=== PATIENT | female | born 1985 | race Caucasian/White ===

== ENCOUNTER 2024-05-26 14:50 | Outpatient (AMB) | payer BC, SELFPAY ==
--- NOTE | 2024-05-26 14:58 | MHC.OFFVIS ---
Vital Signs 05/26/24 15:00 Height 5 ft 10 in Weight 179 lb 0.246 oz BMI 25.7 BP 109/74 Blood Pressure Location Lt brachial Position Sitting Pulse 74 Intake Visit Reasons: colonoscopy screening Intake Note: New patient in office today for colonoscopy screening. CC: Patient states that her sister was diagnosed with colorectal cancer when she was 33 y/o. Patient's last colonoscopy in [address] [place] She reports hx of constipation alternating with diarrhea, SIBO back in 2019, and having abdominal bloating, abdominal pain, and acid reflux. Hotel Service Manager Required: No Accompanied by: Self / Same As Patient Allergies No Known Drug Allergies Allergy (Unknown, Verified 05/26/24 15:14) none HPI HPI colonoscopy screening: Details: 38-year-old female here for preprocedural meeting to discuss a screening colonoscopy. She is referred by [facility]. PMX Migraines Anxiety/depression Sister of colon cancer at age 36 * SURGICAL HISTORY Shoulder surgery [place] tooth extraction Colonoscopy-? in [place] * ALLERGIES: NKDA * Oxagen LABS: none in our system TODAY'S VISIT She had a prior scope 6 years ago. She thinks she had polyps, AND her sister was dx'ed with rectal cancer at age 33. She denies any cardiac or respiratory problems. There are no prior problems with anesthesia or sedation. No ID problems. She says she suffers chronic CIC. BUt then she says she goes back and forth with IBS-M historically, although she has CIC as t he dominant problem recently. It has worsened over the past 2 mos. She had one episode of abd pain with severe CIC and then N/V - but it resolved with a BM. She exercises, eats well, takes a probiotic, drinks a lot of water. There is a FHX of CIC in mother with tics and a resection. She does not favor taking medications so we discussed doing something mild such as taking milk of magnesia. She then mentioned that she is on magnesium already for her migraine headaches so I think that this would be a perfect starting point for her to see if she can increase her intake of magnesium to manage her stools. She buys magnesium glycinate [id number] and she will start doing this. At this point she feels she will do this by herself and call me if she needs additional help. [facility] Surgical History H/O colonoscopy H/O shoulder surgery H/O wisdom tooth extraction Family History Sister Malignant tumor of colon Colorectal cancer Father Heart disease History of cardiac ablation for atrial fibrillation Prediabetes HTN (hypertension) Colon polyps Mother Prediabetes HTN (hypertension) Colon polyps Social History Alcohol intake: never Patient Tobacco Use Status: Never used Tobacco Use of substances other than those prescribed or required for medical reasons: No Review of Systems Const Denies fatigue, Denies fever(s), Denies night sweats, Denies poor appetite and Denies weight loss ENT Reports Normal hearing present, Denies dysphagia, Denies odynophagia, Denies throat swelling and Denies tongue swelling Card Reports no additional complaints Resp Reports no additional complaints GI Details: Denies abdominal pain, Denies melena, Denies bloating, Denies hematochezia, Reports constipation, Denies GI cramping, Denies dysphagia, Denies excessive flatus, Denies early satiety, Denies heartburn, Denies diarrhea, Denies nausea, Denies odynophagia, Denies vomiting and Denies hematemesis Skin/Breast Denies pruritus, Denies lesions, Denies rash and Denies jaundice Neuro Reports Normal hearing present and Denies Abnormal speech present Endo Denies fatigue Aller/Immun Denies throat swelling and Denies tongue swelling Physical Exam Vital Signs: Last Vital Signs Pulse 74 05/26/24 15:00 BP 109/74 05/26/24 15:00 BMI result Body Mass Index 25.7 Const General: cooperative, no acute distress, well developed and well groomed Nutritional Appearance: average body habitus and well nourished Orientation/consciousness: oriented to person, oriented to place and oriented to time Limitations: No language barrier HEENT Head: Yes normocephalic and Yes atraumatic Eyes General: appearance normal, both eyes and all related structures Pupils: Equal, round and reactive pupils present Neck Neck: Yes normal visual inspection and Yes no lymphadenopathy Thyroid: Thyroid normal Resp Effort & Inspection: normal respiratory effort and able to speak in complete sentences Auscultation: clear to auscultation bilaterally Cardio Rate: regular rate Rhythm: regular rhythm Heart sounds: Normal, physiologic split S2 sound present Peripheral pulses: radial pulses present and posterior tibial pulses present GI Inspection: No distended and No Abdominal panniculus present Palpation (GI): Soft to palpation, nontender, no guarding, not rigid and No hepatosplenomegaly present Percussion: Yes normal to percussion Auscultation: normal bowel sounds Rectal Exam - Female: deferred Skin General skin exam: no rashes or lesions noted, turgor normal, skin not dry, no jaundice, No spider nevi and no striae Rashes: no rashes Nails: normal Neuro General: oriented to person, oriented to place and oriented to time Cranial nerves: Yes Equal, round and reactive pupils present and Yes Normal hearing present Speech: No Abnormal speech present Extrem General: Yes normal to inspection, No clubbing, No cyanosis and No edema Psych Appearance: grossly normal and well kempt Mental Status: mental status grossly normal Speech and movement: Normal speech and movement present Affect: normal affect Attitude: cooperative Thought process: Normal thought process present and not confabulating Thought content: Normal thought content present Insight: Good insight present (Psych) Judgement: Good judgement present (Psych) Assessment & Plan Assessment & Plan (1) Family history of malignant neoplasm of colon in relative diagnosed when younger than 50 years of age: Comment: SISTER AT AGE 36 Code(s): Z80.0 - Family history of malignant neoplasm of digestive organs Category: Medical (2) Chronic idiopathic constipation: Code(s): K59.04 - Chronic idiopathic constipation Category: Medical Plan She had a prior scope 6 years ago. She thinks she had polyps, AND her sister was dx'ed with rectal cancer at age 33. She denies any cardiac or respiratory problems. There are no prior problems with anesthesia or sedation. No ID problems. She says she suffers chronic CIC. BUt then she says she goes back and forth with IBS-M historically, although she has CIC as t he dominant problem recently. It has worsened over the past 2 mos. She had one episode of abd pain with severe CIC and then N/V - but it resolved with a BM. She exercises, eats well, takes a probiotic, drinks a lot of water. There is a FHX of CIC in mother with tics and a resection. She does not favor taking medications so we discussed doing something mild such as taking milk of magnesia. She then mentioned that she is on magnesium already for her migraine headaches so I think that this would be a perfect starting point for her to see if she can increase her intake of magnesium to manage her stools. She buys magnesium glycinate [id number] and she will start doing this. At this point she feels she will do this by herself and call me if she needs additional help. Orders: Orders Complete Blood Count Auto Diff Today Z80.0 - Family history of malignant neoplasm of digestive organs Comprehensive Met. Panel Today Z80.0 - Family history of malignant neoplasm of digestive organs Colonoscopy - GI Use Only Today Z80.0 - Family history of malignant neoplasm of digestive organs TSH reflex Free T4 Today K59.04 - Chronic idiopathic constipation Medications: New peg 3350-electrolytes 236-22.74-6.74 -5.86 gram (Golytely) until fecal effluent is clear; do not exceed a total volume of 2,000 mL 240 mL PO Q10M 4,000 mL 0RF 1 day Z12.11 - Encounter for screening for malignant neoplasm of colon bisacodyl (Dulcolax (bisacodyl)) 10 mg (2 x 5 mg) PO BEDTIME 4 tabs 0RF 2 days Coding Level of Care Code New Pt Level 3 (27747) Diagnoses Family history of malignant neoplasm of colon in relative diagnosed when younger than 50 years of age Z80.0 Chronic idiopathic constipation K59.04
[2024-05-26 15:00] VITALS: BP 109/74; PULSE 74; BMI 25.7
--- OUTSIDE RECORDS SUMMARY | 2024-05-26 17:27 | XMS_ITS | Clinical Summary ---
Author Organization [facility] Address [address] [place] [address] Care Team Providers Care Clean Out Driller Name Role Phone Unknown, Primary Care Provider Unavailabl e Social History Tobacco Use Types Packs/Day Years Used Date Smoking Tobacco: Never Assessed Sex and Gender Information Value Date Recorded Sex Assigned at Not on file Gender Identity Not on file Sexual Orientation Not on file Plan of Treatment Health Maintenance Due Date Last Done Comments Hepatitis B Vaccines (1 of 3 - 3-dose series) 1987 Hepatitis C Screening 1987 COVID-19 Vaccine (#1) 01/16/1988 Depression Screening 1999 Preventative Health Evaluation 07/15/2005 DTap / Tdap / Td (1 - Tdap) 07/15/2006 Cervical Cancer Screening (P ap Smear) 07/15/2008 Influenza Vaccine (#1) 2023 Pneumococcal Vaccine Aged Out No long er eligible based on patient's age to complete this topic RSV Ped < 20 months Aged Out No longe r eligible based on patient's age to complete this topic Care Teams Clean Out Driller Relationship Specialty Start Date End Date Unknown, PCP - General 02/28/20
--- OUTSIDE RECORDS SUMMARY | 2024-05-26 17:27 | XMS_ITS | Patient Health Record ---
Author Organization [facility] [place], Address [address] [place] [address] Support Name Relationship Address Phone Pat Vera Guarantor Unknown [phone] Reason For Referral No Information Plan Of Treatment No Information Insurance Providers Payer Name Payer Address Payer Phone Subscriber Number Group Number Insured Name Patient Relationship to Insured Coverage Start Date Coverage End Date [facility] [address] [place] [address] [phone] [id number] Pat Vera Self - patient is the insured
--- OUTSIDE RECORDS SUMMARY | 2024-05-26 17:27 | XMS_ITS | Clinical Summary ---
Author Organization [facility] Address [address] [place] [address] Care Team Providers Care Computer Mechanic Name Role Phone Cami Roa APRN Primary Care Provider Unavailable Medications Magnesium 500 MG Cap TAKE 1 CAPSULE Daily capsule 0 9 Active loratadine (Claritin) 10 MG tablet TAKE 1 TABLET DAILY. 0 9 Active Probiotic Product (Align) Cap USE DIRECTED. 0 2 Active () 27-0.8 MG tablet TAKE 1 TABLET DAILY DIRECTED. 0 2 Active Rizatriptan Benzoate (MAXALT) 10 MG tablet PLEASE SEE ATTACHED FOR DETAILED DIRECTIONS 0 2 Active Escitalopram Oxalate (LEXAPRO) 10 MG tablet TAKE 1 TABLET BY MOUTH DAILY TAKE ONE 10 MG TABLET AND ON 5 MG TABLET DAILY 0 3 Active Escitalopram Oxalate (LEXAPRO) 5 MG tablet TAKE 1 TABLET BY MOUTH DAILY WITH 10MG TABLETS 0 3 Active Active Problems Problem Noted Date Diagnosed Date Encounter for immunization 06/05/2022 Onychomycosis of toenail 03/23/2020 Overview (03/30/2023): Impression - [id number]: Bilateral great toes. Will send in treatment. Encounter for screening for lipid disorder 02/27 Seasonal allergies 05/19/2018 Contraception management 05/19/2018 Vitamin D deficiency 03/26/2018 Acne 06/28/2013 Irritable bowel syndrome, unspecified type 06/28 Overview (03/30/2023): Impression - [id number]: Stable she avoids foods that worsen symptoms. She primarily has the constipation related to IBS. She has a strict bowel regimen.; Description: Past history of small intestinal bacterial overgrowth Migraine headache 06/28/2013 Overview (03/30/2023): Impression - 07Mar2014: doing ok, con't prn sumatriptan Impression - 23Mar2020: About 2 years ago, started on IUD to help with symptoms. Past 4 months she is at 2 migraines per month. Currently taking excedrin. Has been off abortives for years. Has tried Zomig and other abortives like maxalt. Will try rizatriptan again and head[facility]he clinic if symptoms persist. Generalized anxiety disorder 06/28/2013 Overview (03/30/2023): Impression - 23Mar2020: Psychiatrist from [place]. Dr Leon. 2x per week via video. She reports being stable. Depression 06/28/2013 Overview (03/30/2023): Impression - 23Mar2020: Psychiatrist from [place]. Dr Leon. 2x per week via video. She reports being stable. Impression - 23Mar2020: Psychiatrist from [place]. Dr Leon. Follows up 2x per week via video. She reports being stable on current medication. Denies suicidal ideation. Immunizations Name Administration Dates Next Due Covid-19, mRNA (Pfizer Pre F all 2022) Bivalent, 30 mcg/0.3 ml artis-sucrose (12+) dose 11/20/2021 DT (pediatric) 10/09/2006,10/01/2001 DTaP 10/10/1994, 0,02/08/1988,12/03,1987 Hep B (adult) 08/20/2000,11/28/1999,10/25/1999 Hib (PRP-OMP) 02/26/1989 Influenza,injectable,quad,Pr srv Fr,Pedi 11/20/2021 Influenza,seasonal,trivalent ,preservat gisele (FLUZONE MDV) 10/25/2019 MMR 11/28/1998,07/28/1998 Meningococcal ACWY (Menactra) 06/28/2005 OPV 05/22/1989,1987,1987 Tdap 05/19/2018 Family History Medical History Relation Name Comments Cancer - Skin Father skin cancer : Father Hypertension Father hypertension : Mother, Father Other Father Obstructive sle ep apnea : Father Depression Mother depression : Mo ther, Sibling Hypertension Mother hypertension : Mother, Father Lipid/Cholesterol Abnormality Mother hypercholesterolemia : Mother Psych/Mental Health Mother anxiety disorder : Mother, Sibling Cancer - Ovarian Paternal grandmother ova yonis cancer : Paternal Grandmother Depression Sibling depression : Mo ther, Sibling Psych/Mental Health Sibling anxiety disorder : Mother, Sibling Cancer (?Type) Sister Primary cance r of rectum : Sister Relation Name Status Comments Father Mother Paternal grandmother Sibling Sister Social History Tobacco Use Types Packs/Day Years Used Date Smoking Tobacco: Never Assessed Comments:Smoking Status:No c urrent tobacco use Comments Unknown Sex and Gender Information Value Date Recorded Sex Assigned at Not on file Legal Sex Female 3:21 PM EDT Gender Identity Not on file Sexual Orientation Not on file Last Filed Vital Signs Vital Sign Reading Time Taken Comments Blood Pressure 110/80 06/05/2022 10:04 AM EDT Pulse 78 06/05/2022 10:04 AM EDT Temperature 36.1 ??C (96.9 ??F) 06/05/2022 10:04 AM E DT Respiratory Rate 16 06/05/2022 10:04 AM EDT Oxygen Saturation 99% 06/05/2022 10:04 AM EDT Inhaled Oxygen Concentration - - Weight 80.7 kg (178 lb) 05/22/2021 8:34 AM EDT Height 177.8 cm (5' 10 ) 05/22/2021 8:34 AM EDT Body Mass Index 25.54 05/22/2021 8:34 AM EDT Plan of Treatment Health Maintenance Due Date Last Done Comments Pap Smear 2003 Colonoscopy 07/29/2022 07/29/2017, 07/29/2017 COVID-19 Vaccine ( season) 2023 11/20/2021 Influenza (#1) 2023 11/20/2021, 10/25/2019 DTaP/Tdap/Td (6 - Td or Tdap) 05/19/2028 05/19/2018, 10/10/1994, 05/22/1989, Additional history exists Zoster (Shingrix) (1 of 2) 07/15/2037 Hib Completed 02/26/1989 Hep B Completed 08/20/2000, 05/1999, 10/25/1999 Meningococcal ACWY Completed 06/28/2005 Hepatitis C Screening Completed 03/17/2020 LDL Cholesterol Discontinued 03/17/2020, 06/24, 06/22/2014, Additional history exists Physical Discontinued 06/05/2022, 04/25, 03/23/2020, Additional history exists HPV Vaccine Aged Out No longer eligi ble based on patient's age to complete this topic Hep A Aged Out No longer eligi ble based on patient's age to complete this topic Pneumococcal Aged Out No longer eligi ble based on patient's age to complete this topic Procedures Procedure Name Priority Date/Time Associated Diagnosis Comments HEPATITIS C ANTIBODY W/ REFLEX TO RNA, QN, RT PCR Routine 03/17/2020 9:47 AM EST LIPID PANEL, PLASMA Routine 03/17/2020 9 :47 AM EST COLONOSCOPY Routine 07/29/2017 10:08 AM EDT from Last 3 Months or Most Recently Relevant to Health Maintenance Results * HEPATITIS C ANTIBODY W/ REFLEX TO RNA, QN, RT PCR (03/17/2020 9:47 AM EST) Hepatitis C virus Ab NON-REACT GISELE NON-REACT GISELE PHCT CONVERSIONS Hepatitis C virus Ab 0.06 <1.00 PHCT CONVERSIONS Comment:Antibodies to HCV we re not detected. NOTE: This does not entirely exclude the possibility of exposure to HCV since antibody production may lag infection. If there is a high suspicion of HCV infection HCV RNA testing may be of diagnostic value. 03/17/2020 9:47 AM EST Narrative PHCT CONVERSIONS - 03/17/2020 1:00 PM EST Testing Performed at: [facility], [address] [place] [address], [place] [address], , Scouring Pads Supervisor: Jennifer Waite MD CL#[id number] 3:03PM by Rocio Carreno: ??Stable. [facility] at [facility] Final Result PHCT CONVERSIONS * (ABNORMAL) LIPID PANEL, PLASMA (03/17/2020 9:47 AM EST) Cholesterol 187 0 - 199 mg/dL PHCT CONVERSIONS Triglyceride 51 0 - 150 mg/dL PHCT CONVERSIONS VLDL Cholesterol 10 5 - 40 mg/dL PHCT CONVERSIONS HDL Cholesterol 51 50 - 80 mg/dL PHCT CONVERSIONS LDL Cholesterol 126(H) 0 - 100 mg/dL PHCT CONVERSIONS Cholesterol Non-HDL 136(H) 0 - 130 mg/dl PHCT CONVERSIONS CHOL/HDL Ratio 3.7 PHCT CONVERSIONS 03/17/2020 9:47 AM EST Narrative PHCT CONVERSIONS - 03/17/2020 12:56 PM EST FASTING: YES Testing Performed at: [facility], [address] [place] [address], , [place] Supervisor: Jennifer Waite MD CL#[id number] 3:03PM by Rocio Carreno: ??Stable. Discuss at [facility] Final Result PHCT CONVERSIONS * COLONOSCOPY (07/29/2017 10:08 AM EDT) COLONOSCOPY, RESULT Normal PHCT CONVERSIONS DATE NEXT SCREEN VISIT 5 Years PHCT CONVERSIONS 07/29/2017 10:0 8 AM EDT us Php Unknown Prov PROCEDURES Final Result PHCT CONVERSIONS from Last 3 Months or Most Recently Relevant to Health Maintenance Care Teams Computer Mechanic Relationship Specialty Start Date End Date Cami Roa APRN PCP - General 09/30/22
--- OUTSIDE RECORDS SUMMARY | 2024-05-26 17:27 | XMS_ITS | Encounter Summary ---
Author Organization [facility] Address [address] [place] [address] Care Team Providers Care Financial Developer Name Role Phone Rocio Carreno APRN Primary Care Provider + [phone] Encounter Details Date Type Department Care Team (Late st Contact Info) Description 03/18/2024 Scanned Document [facility] [address] [address] Neurology, Scan Social History Tobacco Use Types Packs/Day Years Used Date Smoking Tobacco: Never Smokeless Tobacco: Never Alcohol Use Standard Drinks/Week Comments Yes 1 (1 standard drink = 0.6 oz pur e alcohol) PHQ-2 Answer Date Recorded PHQ-2 Total Score 1 12/29/2023 [facility] - Occupational Stress Questionnaire Answer Date Recorded Do you feel stress - tense, restless, nervous, or anxious, or unable to sleep at night because your mind is troubled all the time - these days? Very much 12/30/2023 Physical Activity Answer Date Recorded On average, how many days pe r week do you engage in moderate to strenuous exercise (like a brisk walk)? 2 days 12/30/2023 On average, how many minutes do you exercise per day at this level? 20 min 12/30/2023 Sex and Gender Information Value Date Recorded Sex Assigned at Female 10/06/2023 7:30 AM EDT Gender Identity Female 01/02/2020 9:23 AM EST Sexual Orientation Heterosexual (straight) 01/01 9:23 AM EST documented as of this encounter Plan of Treatment Upcoming Encounters Date Type Department Care Team (Late st Contact Info) Description 08/31/2024 2:00 PM EDT Office Visit [facility] - [address] [address] Kanchan Ku APRN [address] [address] documented as of this encounter Visit Diagnoses Not on filedocumented in this encounter Care Teams Financial Developer Relationship Specialty Start Date End Date Rocio Carreno APRN [address] [place] [address] PCP - General 08/30/20 documented as of this encounter
--- OUTSIDE RECORDS SUMMARY | 2024-05-26 17:27 | XMS_ITS | Data Portability ---
Author Organization [place] [facility], [facility] Address [address] [facility] [address] [place] [address] Care Team Providers Care Miner Helper Name Role Phone DOTTIE SANA Primary Care Provider Assessment No assessment recorded. Plan of Treatment Reminders Order Date Submit Date Provider Last Modified By Organization Details Last Modified Time Details Appointments None record ed. Lab urinal ysis, dipsti ck 2020 021 [email or web address] In-Office Order, Internal Use Only DO Not Attach Compendium DO Not Attach Compendium, Do Not Delete/merge, [id number] 1 14:08:16 pap, IG + HPV 2020 021 [facility], [address] [place], [address] 1 11:09:44 urinal ysis, dipsti ck 2019 020 [email or web address] In-Office Order, Internal Use Only DO Not Attach Compendium DO Not Attach Compendium, Do Not Delete/merge, [id number] 0 09:42:34 cultur e, genita l, bacter ial 2019 020 [facility], [address] [place], [address] 0 11:29:33 CT + NG DNA, PCR, unspec ified specim en 2019 020 [facility], [address] [place], [address] 0 14:14:04 urinal ysis, dipsti ck 2018 019 [email or web address] In-Office Order, Internal Use Only DO Not Attach Compendium DO Not Attach Compendium, Do Not Delete/merge, [id number] 9 10:14:27 Referral None record ed. Procedures None record ed. Surgeries None record ed. Imaging US, pelvis , comple te 2017 018 [email or web address] Not available 8 15:02:15 Medication Orders Metrog el Vagina l 0.75 % (37.5 mg/5 gram) 2019 020 [email or web address] [id number], [address], [place], [address], 1 13:38:03 Kyleen a 17.5 mcg/24 hr (up to 5 years) 19.5 mg intrau terine device 2017 018 [email or web address] [facility], [facility], [place], [address], 8 15:01:51 Patient TargetsNo targets recorded. Patient Instructions Encounter Date Encounter Id Patient Instructions Last Modified By Organization Details Last Modified Time 04/11/2020 [id number] discussed self breast exam, to call with any concerns exercise -should try to exercise for 30 min 3-4 times a week protect bone with calcium and vit D IVP screen given weight management Behavioral health screening completed and reviewed with patient. Negative findings. [email or web address] Not available 04/11/2020 12:41:03 Reason for Referral None Reported. Results Created Date Observation Date Name Description Value Unit Range Abnormal Flag Note LastModifiedBy Organization Detail LastModifiedTime 04/11/19 21 04/11/2020 urina lysis , dipst ick Interpretati on negati ve Not Available In-Office Order Internal Use Only DO Not Attach Compendium DO Not Attach Compendium, Do Not Delete/merge, [id number] 04/11/2020 12:39:36 08/26/19 20 08/26/2019 urina lysis , dipst ick Leukocytes Modera te: +2 Not Available In-Office Order Internal Use Only DO Not Attach Compendium DO Not Attach Compendium, Do Not Delete/merge, [id number] 08/26/2019 09:35:21 07/31/19 19 07/30/2018 urina lysis , dipst ick Leukocytes Small: +1 Not Available In-Office Order Internal Use Only DO Not Attach Compendium DO Not Attach Compendium, Do Not Delete/merge, [id number] 07/30/2018 09:52:41 08/26/19 20 08/30/2019 vag/c erv cultu re gram stain abnormal GRAM STAIN Micro Numbe r: [id number] Test Statu s: Final Speci men Sourc e: VAGIN A Speci men Quali ty: Adequ ate Gram Stain : Many White blood cells seen Many epith elial cells Many Gram posit elijah bacil li Not Available [facility] [address], [address], 08/30/2019 11:29:33 08/26/19 20 08/30/2019 vag/c erv cultu re culture, genital abnormal CULTU RE, GENIT AL Micro Numbe r: [id number] Test Statu s: Final Speci men Sourc e: VAGIN A Speci men Quali ty: Adequ ate Resul t: Heavy growt h of Yeast Henderson neli. Pleas e conta ct the labor atory withi n 3 days if furth er ident ifica tion is geremias ed. COMME NT: Jes l uroge nital rolanda also prese nt. Not Available [facility] [address], [address], 08/30/2019 11:29:33 08/26/19 20 08/26/2019 CT + NG DNA, PCR, unspe cifie d speci men neisseria gonorrhoeae RNA, tma Negati ve negati ve Not Available [facility] [address] [place] [address], [address] 08/30/2019 14:14:04 08/26/19 20 08/26/2019 CT + NG DNA, PCR, unspe cifie d speci men chlamydia trachomatis RNA, tma Negati ve negati ve Not Available [facility] [address] [place], [address] 08/30/2019 14:14:04 04/11/19 21 04/11/2020 HPV DNA, high- risk HPV MRNA E6/E7 Negati ve negati ve APTIM A HPV assay detec ts 14 high risk HPV types (HPV 16,18 ,31,3 3,35, 39,45 ,51,5 2,56, 58,59 ,66,6 8). The assay is FDA appro ronald for testi ng ThinP rep liqui d Pap vials but not FDA appro ronald for detec ting HPV in SureP ath liqui d Pap speci mens. In-ho use valid ation has shown the assay can detec t all HPV types from this sour e Not Available [facility] [address] [place], [address] 04/14/2020 11:09:41 04/11/1904/11/2020 pap, IG + HPV report Report Final Gynec ologi jojo Cytol ogy Repor t ----- ----- ----- ----- ----- ----- ----- ----- ----- ----- ----- ----- ThinP rep Pap Test, HPV Mai n, Refle x HPV Genot ype SPECI MEN ADEQU ACY: SATIS FACTO RY FOR EVALU ATION ; ENDOC ERVIC AL/TR ANSFO RMATI ON ZONE COMPO NENT PRESE NT. INTER PRETA TION: NEGAT ELIJAH FOR INTRA EPITH AYLIN Herrera OR GARY HATCH . Elect ralph Celeste d: Edna Bose, BINU (ASCP ) ----- ----- ----- ----- ----- ----- ----- ----- ----- ----- ----- ----- CLINI JOJO INFOR ROLANDO N: LMP: 03/24 Clini jojo Histo ry: RTN Speci men Sourc e: Cervi x, Endoc ervix Previ ous Pap Date: 07/25 HPV RESUL TS: HPV mRNA E6/E7 [id number] Appro ronald: 04/12 Negat elijah REF RANGE : Negat elijah CPT Codes : 43580 ICD Codes : Z01.4 19 Not Available [facility] [address] [place], [address] 04/14/2020 11:09:44 09/20/19 18 09/19/2017 imagi ng/di agnos tic resul t No observ ation record ed. [email or web address] Not Available 2017 13:45:58 Result Notes None recorded. Problems No Known Problems Procedures Surgical History Date Name Laterality Status Provider Name and Address Organization Details Recorded Time 2 IUD Removal completed TEX RIOS MD [address], [address] [place] [address], [facility] 03/01/2021 15:32:06 1 [id number]-EZI completed TEX RIOS MD [address], [address] [place] [address] 04/11/2020 12:39:35 1 [id number] completed TEX RIOS MD [address], [address] [place] [address] 04/11/2020 12:39:35 1 [id number] completed TEX RIOS MD [address], [address] [place] [address] 04/11/2020 12:39:35 1 Date of Last Pap Smear completed Tyra Lutz [facility] 04/14/2020 11:35:46 9 [id number] completed TEX RIOS MD [address], [address] [place] [address] 07/30/2018 10:07:09 9 [id number] completed TEX RIOS MD 175 [facility], [address] [place] [address], [address], [facility] 07/30/2018 10:07:09 9 [id number] completed TEX RIOS MD 175 [facility], [address] [place] [address], [place], [address] [place] [address], [facility] 07/30/2018 10:07:09 8 IUD Insert completed TEX RIOS MD 175 [facility], [address] [place] [address], [place], [address] [place] [address], [facility] 09/02/2017 15:01:48 8 [id number] completed TEX RIOS MD 175 [facility], [address] [place] [address], [place], [address] [place] [address], [facility] 07/25/2017 15:08:16 8 [id number] completed TEX RIOS MD 175 [facility], [address] [place] [address], [place], [address] [place] [address], [facility] 07/25/2017 15:08:16 8 [id number] completed TEX RIOS MD 175 [facility], [address] [place] [address], [place], [address] [place] [address], [facility] 07/25/2017 15:08:16 7 [id number]-[id number] completed TEX RIOS MD 175 [facility], [address] [place] [address], [place], [address] [place] [address], [facility] 06/25/2016 09:22:59 7 [id number] completed TEX RIOS MD 175 [facility], [address] [place] [address], [place], [address] [place] [address], [facility] 06/25/2016 09:22:51 7 [id number] completed TEX RIOS MD 175 [facility], [address] [place] [address], [place], [address] [place] [address], [facility] 06/25/2016 09:22:55 None Reported completed Ramza Andrew [place] - [facility] 07/30/2018 09:54:53 Imaging Results Imaging Date Name Status LastModified by Organiz ation Details LastModified Time 09/19/2017 imaging/diag nostic result completed [email or web address] Information not available 09/19/2017 13:45:58 Procedure Notes None recorded. Medical Equipment None Reported. Allergies Allergen ID Allergen Name Allergen Category Reaction Reaction Severity Criticality Documentation Date Start Date Code Code System Note Provider Name and Address Organization Details Recorded Time 050635 No known allergy (situatio n) Not available Not available Not available Not available 07/26/20142013 14013 6003 SNOMED Caren Negron-Fig drea dawson, [facility] 0 09:25:31 No known drug allergies Medications Name Sig Start Date Stop Date Status Note LastModified by Organization Details LastModified Time Vitamin B-2 100 mg tablet active Not Available Not Available Not Available isotretinoi n 40 mg capsule active Not Available Not Available Not Available azithromyci n 250 mg tablet 07/25 completed Not Available Not Available Not Available fluconazole 150 mg tablet Take 1 tablet by oral route. 04/11 completed Not Available Not Available Not Available tretinoin 0.025 % topical cream active Not Available Not Available Not Available minocycline 100 mg capsule active Not Available Not Available Not Available metronidazo le 0.75 % (37.5 mg/5 gram) vaginal gel Insert 1 applicato rful every day by vaginal route for 5 days. 04/11 completed Not Available Not Available Not Available prednisone 20 mg tablet 07/25 completed Not Available Not Available Not Available sulfacetami de sodium-sulf ur 10 %-5 % (w/w) topical cleanser active Not Available Not Available Not Available terconazole 0.8 % vaginal cream Insert 1 applicato rful every day by vaginal route at bedtime for 3 days. 04/11 completed Not Available Not Available Not Available meclizine 12.5 mg tablet 07/25 completed Not Available Not Available Not Available metronidazo le 500 mg tablet 07/30 completed Not Available Not Available Not Available sulfamethox azole 800 mg-trimetho prim 160 mg tablet active Not Available Not Available Not Available ciclopirox 8 % topical solution APPLY TO AFFECTED NAIL BED(S) AND ADJACENT SKIN DAILY. REMOVE WITH ALCOHOL EVERY 7 DAYS 04/11 completed Not Available Not Available Not Available amoxicillin 875 mg tablet 07/25 completed Not Available Not Available Not Available ciprofloxac in 0.3 % eye drops 07/25 completed Not Available Not Available Not Available benzonatate 100 mg capsule 07/25 completed Not Available Not Available Not Available rizatriptan 10 mg disintegrat ing tablet active PRN Not Available Not Available N ot Available cephalexin 500 mg capsule TAKE 1 CAPSULE BY MOUTH EVERY 6 HOURS FOR 10 DAYS 04/11 completed Not Available Not Available Not Available naproxen sodium 550 mg tablet active Not Available Not Available No t Available tobramycin 0.3 % eye drops 07/25 completed Not Available Not Available Not Available dexamethaso ne 4 mg tablet 07/25 completed Not Available Not Available Not Available mupirocin 2 % topical ointment APPLY TO AFFECTED AREA 3 TIMES A DAY FOR 7 DAYS 04/11 completed Not Available Not Available Not Available ipratropium bromide 42 mcg (0.06 %) nasal spray 06/25 completed Not Available Not Available Not Available bromphenira mine-pseudo ephedrine-D M 2 mg-30 mg-10 mg/5 mL oral syrup 07/25 completed Not Available Not Available Not Available ondansetron 4 mg disintegrat ing tablet 07/25 completed Not Available Not Available Not Available naproxen 500 mg tablet active Not Available Not Available Not Available amoxicillin 875 mg-potassiu m clavulanate 125 mg tablet 07/25 completed Not Available Not Available Not Available escitalopra m 20 mg tablet TAKE 1 TABLET BY MOUTH EVERY DAY active Not Available Not Available No t Available eletriptan 40 mg tablet 07/25 completed Not Available Not Available Not Available isotretinoi n 30 mg capsule active Not Available Not Available Not Available FE 03/15 (28) 1 mg-20 mcg (21)/75 mg (7) tablet TAKE 1 TABLET DAILY 09/02 completed Not Available Not Available Not Available Boostrix Tdap 2.5 Lf unit-8 mcg-5 Lf/0.5 mL intramuscul ar syringe 07/25 completed Not Available Not Available Not Available magnesium active Not Available Not Carol ilable Not Available Claritin 02/26 completed Not Available Not Available Not Available ProAir HFA 90 mcg/actuati on aerosol inhaler 07/25 completed Not Available Not Available Not Available Align (B.infantis ) active Not Available Not Available Not Available Xifaxan 550 mg tablet 07/30 completed Not Available Not Available Not Available butalbital- acetaminoph en-caffeine 50 mg-300 mg-40 mg capsule 07/25 completed Not Available Not Available Not Available Avenova 0.01 % topical spray SPRAY TO EYELIDS TWICE DAILY active Not Available Not Available No t Available Citrucel 02/26 completed Not Available Not Available Not Available Kyleena 17.5 mcg/24 hr (up to 5 years) 19.5 mg intrauterin e device Take 1 device by intrauter ine route. 2017 active [facility] [phone] Not Available Not Available Not Available Flucelvax Quad 2291-0218 (PF) 60 mcg (15 mcg x 4)/0.5 mL IM syringe 07/25 completed Not Available Not Available Not Available Multi-DHA (with vitamin K) 27 mg iron-800 mcg-260 mg capsule active Not Available Not Available Not Available Nurtec ODT 75 mg disintegrat ing tablet active Not Available Not Available N ot Available Vitals Date Recorded Body height Body mass index (BMI) Body weight Systolic blood pressure Diastolic blood pressure Provider Name and Address Organization Details Last Updated DateTime 09/02/2017 175.26 cm 31.9 kg/m2 50827.95 g 130 mm[Hg] 90 mm[Hg] Vita Ulrich [facility] 8 14:40:22 Date Recorded Body height Body mass index (BMI) Body weight Systolic blood pressure Diastolic blood pressure Provider Name and Address Organization Details Last Updated DateTime 07/30/2018 175.9 cm 31.4 kg/m2 59387.77 g 109 mm[Hg] 74 mm[Hg] Narayan Morales [facility] 9 09:59:41 Date Recorded Body weight Systolic blood pressure Diastolic blood pressure Provider Name and Address Organization Details Last Updated DateTime 08/26/2019 56647.21 g 125 mm[Hg] 85 mm[Hg] Caren Arthur oa [facility] 08/26/2019 09:27:41 Date Recorded Body height Body mass index (BMI) Body weight Systolic blood pressure Diastolic blood pressure Provider Name and Address Organization Details Last Updated DateTime 04/11/2020 176.53 cm 28.1 kg/m2 78504.33 g 115 mm[Hg] 76 mm[Hg] Caren Rubi ueroa [facility] 13:40:52 Date Recorded Body height Body mass index (BMI) Body weight Systolic blood pressure Diastolic blood pressure Provider Name and Address Organization Details Last Updated DateTime 03/01/2021 176.53 cm 27.9 kg/m2 60742.74 g 113 mm[Hg] 69 mm[Hg] Angela Francesca [facility] 2 14:39:54 Social History Question Answer Notes LastModified by Organizat ion Details LastModified Time Tobacco Smoking Status Never Smoker Angela Ma [facility], [facility] 06/16/2015 08:58:27 What Is Your Occupation? [email or web address] Information not available 02/26/2021 What Was The Date Of Your Most Recent Tobacco Screening? 07/30/2018 Information not available 09/16/2018 Sex: Female Functional Status None recorded. Mental Status None recorded. Family History Relationship Description Onset Age of this Age Resolved Age Notes LastModified by Organization Details LastModified Time Paternal Grandmother Family history of Ovarian carcinoma 72 onset unknow n [email or web address] Not available 07/30/2018 09:57:34 Mother No family history of breast carcinoma [email or web address] Not available 2015 09:19:10 Sister Malignant tumor of rectum 33 [email or web address] Not available 2018 09:57:42 Notes:no colon Medical History Condition Response Headaches/Migraines Y Anxiety Disorder Y GI Problems Y Gynecological History Statement/Question Response Current Control Method None Date of Last Pap Smear 04/11/2020 Date of LMP 02/05/2021 Obstetrics History GPAL:G 0 P 0 0 0 0 Past Encounters Encounter ID Performer Location Encounter Start Date Encounter Closed Date Diagnosis/Indication Diagnosis SNOMED-CT Code Diagnosis ICD10 Code Diagnosis Note [id number] [facility] [address] [place] [address] 05/01/2012 00:00:00 [id number] [facility] [address] [place] [address] 05/18/2013 00:00:00 [id number] [facility] [address] [place] [address] 05/30/2014 00:00:00 [id number] TEX RIOS MD [facility] [place] [address] 06/16/2015 08:46:48 06/16/2015 09:35:05 Gynecologic examination 15362609 Z01.419 discussed self breast exam, to call with any concerns exercise -should try to exercise for 30 min 3-4 times a week protect bone with calcium and vit D heat to chantelle cyst Contracept ion care management 821938844 Z30.9 cont on ocp [id number] TEX RIOS MD [address] [place] [address] 06/25/2016 08:45:21 06/25/2016 09:50:51 Gynecologic examination 77225575 Z01.419 Contracept ion care management 101366146 Z30.9 cont on ocp [id number] TEX RIOS MD [address] [place] [address] 07/25/2017 14:56:29 07/25/2017 15:23:13 Gynecologic examination 58668766 Z01.419 Contracept ion care management 102051713 Z30.9 will switch to iud since having migraiins with ora. will add gc/chlam for pap per protocal [id number] TEX RIOS MD [address] [place] [address] 09/02/2017 14:13:46 09/02/2017 15:02:10 Contraception care 346707208 Z30.40 [id number] TEX RIOS MD [address] [place] [address] 07/30/2018 09:47:02 07/30/2018 10:20:05 Gynecologic examination 39639005 Z01.419 Contracept ion care management 702071307 Z30.9 happy with kylenna [id number] PHU WATTERS MD [address] [place] [address] 08/26/2019 09:14:16 08/26/2019 09:44:19 Vaginitis 87367907 N76.0 likely BV [id number] TEX RIOS MD [address] [place] [address] 04/11/2020 13:27:10 04/11/2020 14:00:33 Gynecologic examination 46863403 Z01.419 Contracept ion care management 895168224 Z30.9 happy with kylenna, will call when ready to remove Family heide nning surveillance 773694742 Z30.09 Patient planning to conceive. Discussed healthy eating and striving for a normal BMI, exercise, taking a pnv with DHA and restrictin g activities which can harm a fetus such as smoking, drugs, alcohol and caffeine. Discussed estimated time of ovulation and suggested johan for her phone which can help with this timing. I reviewed her medical issues and medicines. If not in 6 months, recommend patient to return for a consult. [id number] TEX RIOS MD [address] [place] [address] 03/01/2021 14:29:31 03/01/2021 15:33:09 Health Concerns Section Related Observation LastModified by Organization Detai ls LastModified Time None Recorded Concern Status LastModified by Organization Details LastModified Time None Recorded Advance Directives Directive None Recorded Payers Encounter Date Sequence Insurance Name Policy Number Policy Zavala Covered Member ID Zavala Member ID Guarantor Name 09/02/2017 1 [facility] Cori Vera [id number] Pat Vera 07/30/2018 1 [facility] Cori Vera [id number] Pat Vera 08/26/2019 1 [facility] Cori Vera [id number] Pat Vera 04/11/2020 1 [place]ARH[place] BERNARD [id number] H Pat Vera [id number] Pat Vera 03/01/2021 1 [place]OST[place]UIBS [id number] H Pat Vera [id number] Pat Vera Notes Date Note Type Note Provider Name and Address Organization Details Recorded Time 09/02/2017 text/html on menses now. took advil. all questions answered, consent signed TEX RIOS MD 175 [facility], [address] [place] [address], [address], [facility] 09/02/2017 15:02:28 07/30/2018 text/html no issue.. kylenna much better with migraines- wonderful but menses more painful and heavier than ocp. phd student at 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 new partner x 10 month- lives together. just got tested for std TEX RIOS MD 175 [facility], [address] [place] [address], [address] [place] [address], [facility] 07/30/2018 10:14:31 08/26/2019 text/html Pt c/o vaginal irritation/itchi ng, no new partners, no odor and no dc. Kyleena IUD for BC; I love it . PHU WATTERS MD [address], [address], [facility] 08/26/2019 09:47:05 04/11/2020 text/html doing well and happy with kylenna. getting in December and will most likely then want to ttc TEX RIOS MD 175 [facility], [address] [place] [address], [address], [facility] 04/11/2020 14:08:21 03/01/2021 text/html Patient here to remove her IUD. Started on vitamins already to try to conceive TEX RIOS MD [address], [address], [facility] 03/01/2021 15:32:28 OBGyn Episode No OBEpisode recorded.
--- OUTSIDE RECORDS SUMMARY | 2024-05-26 17:27 | XMS_ITS | Encounter Summary ---
Author Organization [facility] Address [address] [place] [address] Care Team Providers Care Poultry Inseminator Name Role Phone Aminta Krishnamurthy MD Primary Care Provider + [phone] Rocio Carreno APRN Primary Care Provider + [phone] Amy Meyer S3B MULTI SENSOR OPERATOR Unavailable [phone] Encounter Details Date Type Department Care Team (Late st Contact Info) Description 03/17/2018 Scanned Document [facility] [address] [phone] Aminta Krishnamurthy MD [address] [place], [place] [id number] Social History Tobacco Use Types Packs/Day Years Used Date Smoking Tobacco: Never Smokeless Tobacco: Never Alcohol Use Standard Drinks/Week Comments Yes 0 (1 standard drink = 0.6 oz pur e alcohol) Sex and Gender Information Value Date Recorded Sex Assigned at Female 10/06/2023 7:30 AM EDT Gender Identity Female 01/02/2020 9:23 AM EST Sexual Orientation Heterosexual (straight) 01/01 9:23 AM EST documented as of this encounter Plan of Treatment Upcoming Encounters Date Type Department Care Team (Late st Contact Info) Description 08/31/2024 2:00 PM EDT Office Visit [facility] [address] [facility] [place] [address] Kanchan Ku APRN [address] [place] [address] documented as of this encounter Visit Diagnoses Not on filedocumented in this encounter Care Teams Poultry Inseminator Relationship Specialty Start Date End Date Aminta Krishnamurthy MD PCP - General Family Medicine 03/05/18 08/29/20 Rocio Carreno APRN [address] [place] [address] PCP - General 08/30/20 Amy Meyer APRN [facility] [address] [address] PCP - Sarina Commercial Attributed 02/24/21 12/24/22 documented as of this encounter
--- OUTSIDE RECORDS SUMMARY | 2024-05-26 17:27 | XMS_ITS | Encounter Summary ---
Author Organization [facility] and [facility] Address [address] [place] [phone] Care Team Providers Care Innersole Maker Name Role Phone No, Pcp (Do Not Change Name) Primary Care Provid er Unavailable Encounter Details Date Type Department Care Team (Late st Contact Info) Description 06/28/2020 Scanned Document [facility] SCHEDULING [address] [place], [place] [phone] Provider, Historical . Social History Tobacco Use Types Packs/Day Years Used Date Smoking Tobacco: Never Assessed Comments Unknown Sex and Gender Information Value Date Recorded Sex Assigned at Female 04/19/2020 7:40 AM EST Legal Sex Female 8:02 PM EST Gender Identity Female 04/19/2020 7:40 AM EST Sexual Orientation Straight 04/19/2020 7: 40 AM EST documented as of this encounter Plan of Treatment Not on file documented as of this encounter Procedures Procedure Name Priority Date/Time Associated Diagnosis Comments COLONOSCOPY (IMAGES) Routine 06/28/2020 documented in this encounter Results * Colonoscopy (06/28/2020) us Historical Provider GI PROCEDURE ORDERABLES Darlin l Result documented in this encounter Visit Diagnoses Not on filedocumented in this encounter Care Teams Innersole Maker Relationship Specialty Start Date End Date No, Pcp (Do Not Change Name) PCP - General 03/31/20 documented as of this encounter
--- OUTSIDE RECORDS SUMMARY | 2024-05-26 17:27 | XMS_ITS | Encounter Summary ---
Author Organization [facility] Address [address] [place] [address] Care Team Providers Care Manufacturing Storeperson Name Role Phone Rocio Carreno APRN Primary Care Provider + [phone] Encounter Details Date Type Department Care Team (Late st Contact Info) Description 03/18/2024 Scanned Document [facility] [address] [phone] Neurology, Scan Social History Tobacco Use Types Packs/Day Years Used Date Smoking Tobacco: Never Smokeless Tobacco: Never Alcohol Use Standard Drinks/Week Comments Yes 1 (1 standard drink = 0.6 oz pur e alcohol) PHQ-2 Answer Date Recorded PHQ-2 Total Score 1 12/29/2023 [facility] [place] of Occupat ional Health - Occupational Stress [...] Description 08/31/2024 2:00 PM EDT Office Visit [facility] - [address] [phone] Kanchan Ku APRN [address] [address] documented as of this encounter Visit Diagnoses Not on filedocumented in this encounter Care Teams Manufacturing Storeperson Relationship Specialty Start Date End Date Rocio Carreno APRN [address] [place] [address] PCP - General 08/30/20 documented as of this encounter
--- OUTSIDE RECORDS SUMMARY | 2024-05-26 17:27 | XMS_ITS ---
Author Name [facility] Organization Unknown History of Medication Use Medication Directions Dispensed Refills Start Date End Date Stat ciprofloxacin (CILOXAN) 0.3 % ophthalmic solution Administer 1 drop every 2 hours while awake for 2 days, then 1 drop every 4 hours while awake for the next 5 days. 03/16/2022 10/24/2022 aborted trimethoprim-polymyx in b (POLYTRIM) ophthalmic solution Administer 1 drop into the left eye every 4 (four) hours. 03/16/2022 03/16/2022 aborted Probiotic Product (ALIGN PO) Take by mouth. active Magnesium Oxide 140 MG Cap tablet Take 400 mg by mouth daily. Take 2 hours apart from other medications; take with food 10/24/2022 active vitamin with iron and folic acid ( VITAMINS) 28-0.8 MG Tab tablet Take 1 tablet by mouth daily. 10/30/2022 active Fremanezumab-vfrm (Ajovy) 225 MG/1.5ML Solution Auto-injector Inject 225 mg under the skin every 28 days (4 weeks). 12/30/2023 active rizatriptan (MAXALT) 10 MG tablet Take 1 tablet (10 mg total) by mouth once as needed for migraine. May repeat once in 2 hours PRN. Do not exceed 20 mg in 24 hours. Max of 2-3 days per week. 08/09/2021 12/30/2023 active ubrogepant (Ubrelvy) 100 MG tablet Take 1 tablet (100 mg total) by mouth once as needed for migraine. Take 1 tablet as needed for migraine, may repeat 1 tablet in 2 hours if needed. Max of 2 tablets in 24 hours. 12/30/2023 active nortriptyline (PAMELOR) 25 MG capsule Take 1 capsule (25 mg total) by mouth nightly. 05/02/2023 12/30/2023 active acetaminophen (TYLENOL) 500 MG tablet Take 2 tablets (1,000 mg total) by mouth 4 times daily (every 6 hours) as needed for mild pain. active Problems Problem Status Onset Date Problem Type Date of Resoluti on Source Migraine without aura, intractable, without status migrainosus active 2021-08-09 ProblemAct [facility] Chronic migraine without aura, intractable, without status migrainosus active EncounterDiagnosisAct [facility] Migraine with aura, intractable, with status migrainosus active 2021-08-09 ProblemAct [facility] 22 weeks gestation of active 2021-08-09 ProblemAct [facility] Immunizations Vaccine Date Source Lot Number Status Covid-19 MRNA Vaccine - Pfiz er 12+ (Purple Cap) 04/23/2020 [facility] [id number] completed Covid-19 MRNA Vaccine - Pfiz er 12+ (Purple Cap) 05/14/2020 [facility] [id number] completed Encounters Encounter Type Encounter Reason Primary Diagnosis Location Date Ambulatory Chronic migraine without aura, intractable, without status migrainosus Chronic migraine without aura, intractable, without status migrainosus [facility] 12/30/2023 Ambulatory Chronic migraine without aura, intractable, without status migrainosus Chronic migraine without aura, intractable, without status migrainosus [facility] 10/06/2023 Ambulatory Menstrual migraine, not intractable, without status migrainosus Menstrual migraine, not intractable, without status migrainosus [facility] 04/03/2023 Ambulatory Chronic migraine without aura, intractable, without status migrainosus Chronic migraine without aura, intractable, without status migrainosus [facility] 04/01/2023 Ambulatory Migraine with aura, intractable, with status migrainosus Migraine with aura, intractable, with status migrainosus [facility] 12/04/2022 Ambulatory Migraine with aura, intractable, without status migrainosus Migraine with aura, intractable, without status migrainosus [facility] 10/29/2022 Ambulatory Chronic migraine without aura, intractable, without status migrainosus Chronic migraine without aura, intractable, without status migrainosus [facility] 10/24/2022 Ambulatory Unspecified conjunctivitis [facility] 03/16/2022 Ambulatory Migraine with au ra, intractable, with status migrainosus [facility] 08/14/2021 Ambulatory Migraine with au ra, intractable, with status migrainosus [facility] 08/14/2021 Ambulatory Migraine with au ra, intractable, with status migrainosus [facility] 08/13/2021 Ambulatory Migraine with au ra, intractable, with status migrainosus [place] [facility] 08/09/2021 Ambulatory Diarrhea, unspecified [facility] 05/18/2021 Ambulatory Chronic migraine without aura, intractable, without status migrainosus [place] [facility] 05/14/2021 Ambulatory [facility] 03/01/2021 Ambulatory Encounter for ot her general counseling and advice on procreation [place] [facility] 02/28/2021 Ambulatory Chronic migraine without aura, intractable, without status migrainosus [place] [facility] 01/31/2021 Care Team Organization Name Specialty Phone Email Start Date End Da te Office of the Commercial Front Load Operator ([facility]) 01/09/2024 [facility] 11/26/2022 [facility] SANA SINCLAIR Primary Care 08/14/2021 [facility] Primary [facility] 04/14/2021 05/26/2021 [facility] 03/02/202110/12 [facility], [facility] 03/01/202103/01 [facility] SANA SINCLAIR Primary Care 09/18/2020 10/13/19 24 [facility] SANA SINCLAIR Primary Care 09/18/2020 09/19/19 21 [facility] SANA SINCLAIR Primary Care 08/30/2020 022
--- OUTSIDE RECORDS SUMMARY | 2024-05-26 17:27 | XMS_ITS | Encounter Summary ---
Author Organization [facility] Address [address] [place] [address] Care Team Providers Care Jeweler Apprentice Name Role Phone Rocio Carreno PRODUCTION ASSEMBLY SUPERVISOR Primary Care Provider + [phone] Amy Meyer PRODUCTION ASSEMBLY SUPERVISOR Unavailable [phone] Encounter Details Date Type Department Care Team (Late st Contact Info) Description 12/19/2020 Scanned Document [facility] [address] [place] [phone] Gastroenterology, Scan Social History Tobacco Use Types Packs/Day Years Used Date Smoking Tobacco: Never Smokeless Tobacco: Never Alcohol Use Standard Drinks/Week Comments Yes 1 (1 standard drink = 0.6 oz pur e alcohol) PHQ-2 Answer Date Recorded PHQ-2 Total Score 0 08/30/2020 Sex and Gender Information Value Date Recorded Sex Assigned at Female 10/06/2023 7:30 AM EDT Gender Identity Female 01/02/2020 9:23 AM EST Sexual Orientation Heterosexual (straight) 01/01 9:23 AM EST documented as of this encounter Plan of Treatment Upcoming Encounters Date Type Department Care Team (Late st Contact Info) Description 08/31/2024 2:00 PM EDT Office Visit [address] [phone] CastKanchan chan APRN 65 [facility] [address] [place] [address] documented as of this encounter Visit Diagnoses Not on filedocumented in this encounter Care Teams Jeweler Apprentice Relationship Specialty Start Date End Date Rocio Carreno APRN [address] [place] [phone] PCP - General 08/30/20 Amy Meyer APRN [address] [facility] 1 [place] [address] PCP - [place] Commercial Attributed 02/24/21 12/24/22 documented as of this encounter
--- OUTSIDE RECORDS SUMMARY | 2024-05-26 17:27 | XMS_ITS | Encounter Summary ---
Author Organization [facility] Address [address] [place] [address] Care Team Providers Care Caravan Park And Camping Ground Manager Name Role Phone Rocio Carreno PACKING ROOM INSPECTOR Primary Care Provider [phone] Amy Meyer PACKING ROOM INSPECTOR Unavailable [phone] Encounter Details Date Type Department Care Team (Late st Contact Info) Description 05/18/2021 Scanned Document [address] [phone] Amy Meyer, CHANTELL [address] [phone] Social History Tobacco Use Types Packs/Day Years Used Date Smoking Tobacco: Never Smokeless Tobacco: Never Alcohol Use Standard Drinks/Week Comments Yes 1 (1 standard drink = 0.6 oz pur e alcohol) PHQ-2 Answer Date Recorded PHQ-2 Total Score 0 08/30/2020 Comments Yes Sex and Gender Information Value Date Recorded Sex Assigned at Female 10/06/2023 7:30 AM EDT Gender Identity Female 01/02/2020 9:23 AM EST Sexual Orientation Heterosexual (straight) 01/01 9:23 AM EST COVID-19 Exposure Response Date Recorded In the last month, have you been in contact with someone who was confirmed or suspected to have Coronavirus / COVID-19? No / Unsure 05/18/2021 2:12 PM EDT documented as of this encounter Plan of Treatment Upcoming Encounters Date Type Department Care Team (Late st Contact Info) Description 08/31/2024 2:00 PM EDT Office Visit [facility] 65 [facility] [address] [place] [phone] Kanchan Ku APRN 65 [facility] Mateusz [address] [place] [address] documented as of this encounter Visit Diagnoses Not on filedocumented in this encounter Care Teams Caravan Park And Camping Ground Manager Relationship Specialty Start Date End Date Rocio Carreno APRN [address] [place] [phone] PCP - General 08/30/20 Amy Meyer APRN 1741 [facility] 1 [place] [address] PCP - [place] Commercial Attributed 02/24/21 12/24/22 documented as of this encounter
--- OUTSIDE RECORDS SUMMARY | 2024-05-26 17:27 | XMS_ITS | Clinical Summary ---
Author Organization [address] Address [address] [place] [phone] Phone Care Team Providers Care Shank Maker Name Role Phone No, Pcp (Do Not Change Name) Primary Care Provid er Unavailable Social History Tobacco Use Types Packs/Day Years Used Date Smoking Tobacco: Never Assessed Comments Unknown Sex and Gender Information Value Date Recorded Sex Assigned at Female 04/19/2020 7:40 AM EST Legal Sex Female 8:02 PM EST Gender Identity Female 04/19/2020 7:40 AM EST Sexual Orientation Straight 04/19/2020 7: 40 AM EST Plan of Treatment Health Maintenance Due Date Last Done Comments HIV screening 07/15/2000 Hepatitis C screening 07/15/2005 Tetanus adult (Td q 10,TDAP once) 2007 Cervical cancer screening 07/15/2008 Influenza vaccine 09/25/2023 10/14/2019 Covid-19 vaccine series ( season) 2023 05/14/2020, 04/23/2020 RSV Immunization (1 - 1-dose 75+ series) 07/15/2062 Meningococcal Vaccine Aged Out No dio britni eligible based on patient's age to complete this topic Pneumococcal Vaccine (2 - 49 years) Aged Out No longer eligible b ased on patient's age to complete this topic Insurance BCBS Care Teams Shank Maker Relationship Specialty Start Date End Date No, Pcp (Do Not Change Name) PCP - General 03/31/20
--- OUTSIDE RECORDS SUMMARY | 2024-05-26 17:27 | XMS_ITS | Clinical Summary ---
Author Organization [facility] Address [address] [place] [address] Care Team Providers Care Managed Services Consultant Name Role Phone Rocio Carreno APRN Primary Care Provider + [phone] Allergies No known active allergies Medications Medication Sig Dispensed Refills Start Date End Date Status Probiotic Product (ALIGN PO) Take by mouth. Active Nerve Stimulator (Nerivio) DeviceIndications :Migraine with aura, intractable, with status migrainosus Apply 1 Device topically daily as needed (headache). Apply one 45 minute treatment with device within 60 minutes of migraine onset 1 each 5 08/09/2021 Active acetaminophen (TYLENOL) 500 MG tablet Take 2 tablets (1,000 mg total) by mouth 4 times daily (every 6 hours) as needed for mild pain. Active metoCLOPRAMIDE (REGLAN) 10 MG tabletIndications :Migraine with aura, intractable, with status migrainosus Take 1 tablet (10 mg total) by mouth 4 times daily (every 6 hours) as needed for nausea. 30 tablet 3 08/13/2021 Active escitalopram (LEXAPRO) 10 MG tablet Take 1.5 tablets (15 mg total) by mouth daily. 03/01/2022 Active MAGNESIUM GLYCINATE PLUS PO Take by mouth. Act gisele multivitamin Tab tablet Take 1 tablet by mouth daily. Active levonorgestrel (Liletta, 52 MG,) 20.1 MCG/DAY IUD 1 Intra Uterine Device by Intrauterine route once. Active ubrogepant (Ubrelvy) 100 MG tabletIndications :Chronic migraine without aura, intractable, without status migrainosus Take 1 tablet (100 mg total) by mouth once as needed for migraine. Take 1 tablet as needed for migraine, may repeat 1 tablet in 2 hours if needed. Max of 2 tablets in 24 hours. 16 tablet 3 12/30/2023 Active Fremanezumab-vfrm (Ajovy) 225 MG/1.5ML Solution Auto-injectorIndi cations:Chronic migraine without aura, intractable, without status migrainosus Inject 225 mg under the skin every 28 days (4 weeks). 1.5 mL 3 05/06/2024 Active Fremanezumab-vfrm (Ajovy) 225 MG/1.5ML Solution Auto-injectorIndi cations:Chronic migraine without aura, intractable, without status migrainosus Inject 225 mg under the skin every 28 days (4 weeks). 1.5 mL 3 12/30/2023 Discontinue d(Reorder) Active Problems Problem Noted Date Diagnosed Date Migraine without aura, intra ctable, without status migrainosus 08/09/2021 Migraine with aura, intractable, with status evelia rainosus 08/09/2021 22 weeks gestation of 08/09/2021 Encounters Date Type Department Care Team Description 05/06/[address] [phone] Kanchan Ku APRN Chronic migraine without aura, intractable, without status migrainosus 03/18/2024 Scanned Document [address] [phone] Neurology, Scan 03/18/2024 Scanned Document [address] [phone] Neurology, Scan 03/04/[address] [place] [address] Kanchan Ku APRN from Last 3 Months Immunizations Name Administration Dates Next Due Covid-19 MRNA Vaccine - Pfizer 12+ (Purple Cap) 05/14/2020,04/23/2020 Family History Medical History Relation Name Comments Anemia Father Diabetes Father Gallbladder disease Father Heart failure Father Alcohol abuse Mother Diabetes Mother Mental illness Mother Ovarian cancer Paternal Grandmother Rectal cancer Sister Relation Name Status Comments Father Alive Mother Paternal Grandmother Sister Social History Tobacco Use Types Packs/Day Years Used Date Smoking Tobacco: Never Smokeless Tobacco: Never Tobacco Cessation:Counseling Given: Not Answered Alcohol Use Standard Drinks/Week Comments Yes 1 (1 standard drink = 0.6 oz pur e alcohol) PHQ-2 Answer Date Recorded PHQ-2 Total Score 1 12/29/2023 [facility] of Occupat ional Health - Occupational Stress [...] Orientation Heterosexual (straight) 01/01 9:23 AM EST Last Filed Vital Signs Vital Sign Reading Time Taken Comments Blood Pressure 118/86 12/30/2023 3:25 PM EST Pulse 67 12/30/2023 3:25 PM EST Temperature 36.8 ??C (98.2 ??F) 05/18/2021 2:19 PM ED T Respiratory Rate 14 12/30/2023 3:25 PM EST Oxygen Saturation 98% 12/30/2023 3:25 PM EST Inhaled Oxygen Concentration - - Weight 81.6 kg (180 lb) 12/30/2023 3:25 PM EST Height 177.8 cm (5' 10 ) 12/30/2023 3:25 PM EST Body Mass Index 25.83 12/30/2023 3:25 PM EST Plan of Treatment Upcoming Encounters Date Type Department Care Team (Late st Contact Info) Description 08/31/2024 2:00 PM EDT Office Visit [facility] [address] [phone] Kanchan Ku APRN 65 [facility] Mate[facility]z [address] [place] [phone] Health Maintenance Due Date Last Done Comments Hepatitis C Virus Screening 1987 HIV Screening 07/15/2000 DTaP/Tdap/Td Vaccines (1 - Tdap) 07/15/2006 Hepatitis B Vaccines (1 of 3 - 19+ 3-dose series) 07/15/2006 Pap Smear (Ages 21-65) 04/11/2023 04/11/2020 Influenza Vaccine 09/25/2023 11/20/2021, , 10/25/2019, Additional history exists COVID-19 Vaccine ( season) 2023 11/20/2021, 12/27/2020, 05/14/2020, Additional history exists HPV Vaccines Aged Out No longer eligi ble based on patient's age to complete this topic Pneumococcal Vaccine: Pediatric (0-5 Years) and At-Risk Patients (6 to 49 Years) Aged Out No longer eligible based on patient's age to complete this topic Procedures Procedure Name Priority Date/Time Associated Diagnosis Comments THINPREP PAP(ENTERPRISE SALES PERSON) HPV SCR RFX HPV 16,18/45 Routine 04/11/2020 12:44 AM EST from Last 3 Months or Most Recently Relevant to Health Maintenance Results * ThinPrep Pap(Academic Affairs Director) HPV Scr Rfx HPV 16,18/45 (04/11/2020 12:44 AM EST) Report Report [facility] Comment: Final Gynecological Cytology Report ThinPrep Pap Test, HPV Screen, Reflex HPV Genotype SPECIMEN ADEQUACY: SATISFACTORY FOR EVALUATION; ENDOCERVICAL/TRANSFORMATION ZONE COMPONENT PRESENT. INTERPRETATION: NEGATIVE FOR INTRAEPITHELIAL LESION OR MALIGNANCY. Electronically Signed: ??Elba Gabriel CT (ASCP) CLINICAL INFORMATION: LMP: 03/24/2020 Clinical History: ??RTN Specimen Source: ??Cervix, Endocervix Previous Pap Date: ??07/25/2017 HPV RESULTS: HPV mRNA E6/E7 ?? [id number] ?? Approved: 04/12/20 Negative ? REF RANGE: Negative CPT Codes: 33640 ICD Codes: Z01.419 Other 04/11/2020 12:4 4 AM EST 04/12/2020 1:18 AM EST Elizabeth Romo MD LAB AMB PATH/CYTO OR DERABLES [facility] [address] [place], [place] from Last 3 Months or Most Recently Relevant to Health Maintenance Care Teams Managed Services Consultant Relationship Specialty Start Date End Date Rocio Carreno APRN [address] [place] [address] PCP - General 08/30/20
--- OUTSIDE RECORDS SUMMARY | 2024-05-26 17:27 | XMS_ITS | Encounter Summary ---
Author Organization [facility] Address [address] [place] [phone] Care Team Providers Care General Internist And Physician Leader Name Role Phone No, Pcp (Do Not Change Name) Primary Care Provid er Unavailable Encounter Details Date Type Department Care Team (Late st Contact Info) Description 06/28/2020 Scanned Document [facility] GI Surgery [address] [address] [place], [place] Social History Tobacco Use Types Packs/Day Years [...] on file documented as of this encounter Visit Diagnoses Not on filedocumented in this encounter Care Teams General Internist And Physician Leader Relationship Specialty Start Date End Date No, Pcp (Do Not Change Name) PCP - General 03/31/20 documented as of this encounter
--- OUTSIDE RECORDS SUMMARY | 2024-05-26 17:28 | XMS_ITS | Encounter Summary ---
Author Organization [facility] Address [address] [place] [address] Care Team Providers Care Glassworker Name Role Phone Rocio Carreno PEDIATRIC SPEECH LANGUAGE PATHOLOGIST Primary Care Provider [phone] Amy Meyer PEDIATRIC SPEECH LANGUAGE PATHOLOGIST Unavailable [phone] Reason for Visit * Reason Comments Medication Refill Encounter Details Date Type Department Care Team (Late st Contact Info) Description 09/22/2020 Refill [facility] [address] [phone] Amy Meyer, PEDIATRIC SPEECH LANGUAGE PATHOLOGIST [address] [phone] Chronic migraine without aura, intractable, without status migrainosus Social History Tobacco Use Types Packs/Day Years [...] have Coronavirus / COVID-19? No / Unsure 09/18/2020 2:45 PM EDT documented as of this encounter Plan of Treatment Upcoming Encounters Date Type Department Care Team (Late st Contact Info) Description 08/31/2024 2:00 PM EDT Office Visit [facility] 65 [facility] [address] [place] [address] Kanchan Ku APRN 65 [facility] Mate[address] [place], [place] [phone] documented as of this encounter Visit Diagnoses Diagnosis Chronic migraine without aura, intractable, without status migrainosus documented in this encounter Care Teams Glassworker Relationship Specialty Start Date End Date Rocio Carreno APRN [address] [place] [address] PCP - General 08/30/20 Amy Meyer, PEDIATRIC SPEECH LANGUAGE PATHOLOGIST 17[address] [facility] 1 [place] [address] PCP - [place] Commercial Attributed 02/24/21 12/24/22 documented as of this encounter
== END 2024-05-26 15:30 | disposition home or self-care (01) ==
LOC: HO.HGI 14:51
PROVIDERS: PCP Advanced Practice Midwife; Visit Provider Nurse Practitioner
DX: Z80.0 Family history of malignant neoplasm of digestive organs (principal); K59.04 Chronic idiopathic constipation
CPT/HCPCS: 99203

== ENCOUNTER 2024-05-26 14:50 | Outpatient (REF) | payer BC, SELFPAY ==
[2024-05-26 16:00] LABS: MANUAL DIFF FLAG NO
[2024-05-26 16:12] LABS: Basophils Absolute Auto 0.1 X10*3/uL (0.0-0.2); Basophils Percent Auto 0.9 % (0-2); Eosinophils Percent Auto 0.4 % (0-4); Hematocrit 43.9 % (37.0-47.0); Hemoglobin 14.9 g/dl (12.0-16.0); Imm Gran Abs Auto 0.04 X10*3/uL (0.00-0.03); Imm Gran Pct Auto 0.4 % (0.0-0.4); Lymphocytes Absolute Auto 3.9 X10*3/uL (1.2-4.9); Lymphocytes Percent Auto 37.2 % (20-40); Mean Corpuscular HGB Conc 33.9 g/dl (31.0-35.0); Mean Corpuscular Hemoglobin 31.4 pg (27.0-33.0); Mean Corpuscular Volume 92.4 fL (80.0-98.0); Mean Platelet Volume 11.1 fL (9.4-12.3); Monocytes Absolute Auto 0.9 X10*3/uL (0.1-1.2); Monocytes Percent Auto 8.7 % (2-11); Neutrophils Absolute Auto 5.4 x10*3/uL (2.0-8.3); Neutrophils Percent Auto 52.4 % (45-73); Platelet Count 250 X10*3/uL (160-400); Red Blood Count 4.75 X10*6/uL (4.20-5.50); Red Cell Distribution Width 11.9 % (11.0-16.0); White Blood Count 10.4 X10*3/uL (4.8-10.8)
[2024-05-26 17:19] LABS: Alanine Aminotransferase 16 U/L (0-31); Albumin Level 4.3 g/dL (3.5-5.0); Anion Gap 10 (12-20); Aspartate Amino Transferase 22 U/L (5-31); Bilirubin Total 0.4 mg/dL (0.0-1.0); Blood Urea Nitrogen 17 mg/dL (9-16); Calcium 9.6 mg/dL (8.4-10.2); Carbon Dioxide 27 mmol/L (22-29); Chloride 107 mmol/L (96-108); Estimated Glomerular Filt Rate 56; Glucose Random 91 mg/dL (60-115); Sodium 140 mmol/L (135-145); Total Protein 7.6 g/dL (6.5-8.0)
[2024-05-26 17:30] LABS: Alkaline Phosphatase 40 U/L (39-117)
[2024-05-26 17:40] LABS: TSH reflex Free T4 1.19 uIU/mL (0.32-4.0)
--- OUTSIDE RECORDS SUMMARY | 2024-05-26 17:47 | XMS_ITS | Encounter Summary ---
Author Organization [facility] Address [address] [place] [address] Care Team Providers Care Air Moving Technician Name Role Phone Rocio Carreno STENO POOL SUPERVISOR Primary Care Provider [phone] Amy Meyer STENO POOL SUPERVISOR Unavailable [phone] Encounter Details Date Type Department Care Team (Late st Contact Info) Description 05/18/2021 Scanned Document [address] [phone] Amy Meyer, CHANTELL [address] [phone] Social History Tobacco Use Types Packs/Day Years [...] Description 08/31/2024 2:00 PM EDT Office Visit [facility] 65 [facility] [address] [place] [phone] Kanchan Ku APRN 65 [facility] Mateusz [address] [place] [address] documented as of this encounter Visit Diagnoses Not on filedocumented in this encounter Care Teams Air Moving Technician Relationship Specialty Start Date End Date Rocio Carreno APRN [address] [place] [address] PCP - General 08/30/20 Amy Meyer APRN 17[address] [facility] 1 [place] [address] PCP - [place] Commercial Attributed 02/24/21 12/24/22 documented as of this encounter
--- OUTSIDE RECORDS SUMMARY | 2024-05-26 17:47 | XMS_ITS | Encounter Summary ---
Author Organization [facility] Address [address] [place] [address] Care Team Providers Care Lead Java Software Engineer Name Role Phone Rocio Carreno APRN Primary Care Provider + [phone] Encounter Details Date Type Department Care Team (Late st Contact Info) Description 03/18/2024 Scanned Document [facility] [address] [address] Neurology, Scan Social History Tobacco Use Types Packs/Day Years Used Date Smoking Tobacco: Never Smokeless Tobacco: Never Alcohol Use Standard Drinks/Week Comments Yes 1 (1 standard drink = 0.6 oz pur e alcohol) PHQ-2 Answer Date Recorded PHQ-2 Total Score 1 12/29/2023 [facility] of Occupat ional Health - Occupational Stress [...] Description 08/31/2024 2:00 PM EDT Office Visit [facility] - [address] [phone] Kanchan Ku APRN [address] [address] documented as of this encounter Visit Diagnoses Not on filedocumented in this encounter Care Teams Lead Java Software Engineer Relationship Specialty Start Date End Date Rocio Carreno APRN [address] [place] [address] PCP - General 08/30/20 documented as of this encounter
--- OUTSIDE RECORDS SUMMARY | 2024-05-26 17:47 | XMS_ITS | Encounter Summary ---
Author Organization [facility] Address [address] [place] [address] Care Team Providers Care Patient Registrar Name Role Phone Rocio Carreno APRN Primary Care Provider + [phone] Encounter Details Date Type Department Care Team (Late st Contact Info) Description 03/18/2024 Scanned Document [facility] [address] [address] Neurology, Scan Social History Tobacco Use Types Packs/Day Years Used Date Smoking Tobacco: Never Smokeless Tobacco: Never Alcohol Use Standard Drinks/Week Comments Yes 1 (1 standard drink = 0.6 oz pur e alcohol) PHQ-2 Answer Date Recorded PHQ-2 Total Score 1 12/29/2023 [facility] of Occupat ional Health - Occupational Stress [...] Description 08/31/2024 2:00 PM EDT Office Visit [facility] - [address] [address] Kanchan Ku APRN [address] [address] documented as of this encounter Visit Diagnoses Not on filedocumented in this encounter Care Teams Patient Registrar Relationship Specialty Start Date End Date Rocio Carreno APRN [address] [place] [address] PCP - General 08/30/20 documented as of this encounter
--- OUTSIDE RECORDS SUMMARY | 2024-05-26 17:47 | XMS_ITS | Encounter Summary ---
Author Organization [facility] Address [address] [place] [address] Care Team Providers Care Graphite Grinder Name Role Phone Rocio Carreno TAPE DECK INSTALLER Primary Care Provider [phone] Amy Meyer TAPE DECK INSTALLER Unavailable Reason for Visit * Reason Comments Medication Refill Encounter Details Date Type Department Care Team (Late st Contact Info) Description 09/22/2020 Refill [facility] [address] [phone] Amy Meyer, TAPE DECK INSTALLER [address] [phone] Chronic migraine without aura, intractable, without status [...] Description 08/31/2024 2:00 PM EDT Office Visit [facility] 65 [facility] [address] [place] [address] Kanchan Ku APRN 65 [facility] [address] [place], [place] [phone] documented as of this encounter Visit Diagnoses Diagnosis Chronic migraine without aura, intractable, without status migrainosus documented in this encounter Care Teams Graphite Grinder Relationship Specialty Start Date End Date Rocio Carreno APRN [address] [place] [address] PCP - General 08/30/20 Amy Meyer, TAPE DECK INSTALLER 1741 [facility] [address] [place] [address] PCP - Venus [employer] Attributed 02/24/21 12/24/22 documented as of this encounter
--- OUTSIDE RECORDS SUMMARY | 2024-05-26 17:47 | XMS_ITS | Clinical Summary ---
Author Organization [facility] Address [address] [place] [address] Care Team Providers Care Cone Former Name Role Phone Unknown, Primary Care Provider [...] age to complete this topic Care Teams Cone Former Relationship Specialty Start Date End Date Unknown, PCP - General 02/28/20
--- OUTSIDE RECORDS SUMMARY | 2024-05-26 17:47 | XMS_ITS | Encounter Summary ---
Author Organization [facility] Address [address] [place] [phone] Care Team Providers Care Armature Repairer Name Role Phone No, Pcp (Do Not Change Name) Primary Care Provid er Unavailable Encounter Details Date Type Department Care Team (Late st Contact Info) Description 06/28/2020 Scanned Document [facility] SCHEDULING [address] [place], [place] [id number] Provider, Historical . Social History Tobacco Use [...] on filedocumented in this encounter Care Teams Armature Repairer Relationship Specialty Start Date End Date No, Pcp (Do Not Change Name) PCP - General 03/31/20 documented as of this encounter
--- OUTSIDE RECORDS SUMMARY | 2024-05-26 17:47 | XMS_ITS | Clinical Summary ---
Author Organization [address] Address [address] [place] [phone] Phone Care Team Providers Care Enterprise Cloud Architect Name Role Phone No, Pcp (Do Not [...] complete this topic Insurance [employer] Care Teams Enterprise Cloud Architect Relationship Specialty Start Date End Date No, Pcp (Do Not Change Name) PCP - General 03/31/20
--- OUTSIDE RECORDS SUMMARY | 2024-05-26 17:47 | XMS_ITS | Encounter Summary ---
Author Organization [facility] Address [address] [place] [phone] Care Team Providers Care Management Developer Name Role Phone No, Pcp (Do Not Change Name) Primary Care Provid er Unavailable Encounter Details Date Type Department Care Team (Late st Contact Info) Description 06/28/2020 Scanned Document [facility] GI Surgery [address] [address] [place], [place] Social History Tobacco Use Types [...] on filedocumented in this encounter Care Teams Management Developer Relationship Specialty Start Date End Date No, Pcp (Do Not Change Name) PCP - General 03/31/20 documented as of this encounter
--- OUTSIDE RECORDS SUMMARY | 2024-05-26 17:47 | XMS_ITS | Clinical Summary ---
Author Organization [facility] Address [address] [place] [address] Care Team Providers Care Preparation Room Manager Name Role Phone Cami Roa APRN Primary [...] of toenail 03/23/2020 Overview (03/30/2023): Impression - [id number]: Bilateral great toes. Will send in treatment. Encounter for screening for lipid disorder 02/27 Seasonal allergies 05/19/2018 Contraception management 05/19/2018 Vitamin D deficiency 03/26/2018 Acne 06/28/2013 Irritable bowel syndrome, unspecified type 06/28 Overview (03/30/2023): Impression - [id number]: Stable she avoids foods that worsen symptoms. [...] Overview (03/30/2023): Impression - 23Mar2020: Psychiatrist from [place]. Dr Leon. 2x per week via video. She reports being stable. Depression 06/28/2013 Overview (03/30/2023): Impression - 23Mar2020: Psychiatrist from [place]. Dr Leon. 2x per week via video. She reports being stable. Impression - 23Mar2020: Psychiatrist from [place]. Dr Leon. Follows up 2x per week [...] 03/17/2020 1:00 PM EST Testing Performed at: [facility], [address] [place] [address], [place] [address], , Insole Reinforcer: Jennifer Waite MD CL#[id number] 3:03PM by Rocio Carreno: ??Stable. [facility] Final Result PHCT CONVERSIONS * (ABNORMAL) [...] PM EST FASTING: YES Testing Performed at: [facility], [address] [place] [address], , Insole Reinforcer: Jennifer Waite MD CL#[id number] 3:03PM by Rocio Carreno: ??Stable. Discuss at [facility] Final Result PHCT CONVERSIONS * COLONOSCOPY (07/29/2017 10:08 AM EDT) COLONOSCOPY, RESULT Normal PHCT CONVERSIONS DATE NEXT SCREEN VISIT 5 Years PHCT CONVERSIONS 07/29/2017 10:0 8 AM EDT us Php Unknown Prov PROCEDURES Final Result PHCT CONVERSIONS from Last 3 Months or Most Recently Relevant to Health Maintenance Care Teams Preparation Room Manager Relationship Specialty Start Date End Date Cami Roa APRN PCP - General 09/30/22
--- OUTSIDE RECORDS SUMMARY | 2024-05-26 17:47 | XMS_ITS | Encounter Summary ---
Author Organization [facility] Address [address] [place] [address] Care Team Providers Care Risk Management Intern Name Role Phone Aminta Krishnamurthy MD Primary Care Provider + [phone] Rocio Carreno APRN Primary Care Provider + [phone] Amy Meyer CELL ROOM SUPERVISOR Unavailable [phone] Encounter Details Date Type Department Care Team (Late st Contact Info) Description 03/17/2018 Scanned Document [facility] [address] [phone] Aminta Krishnamurthy MD [address] [place], [place] [phone] Social History Tobacco Use Types Packs/Day Years [...] PM EDT Office Visit [facility] [address] [facility] [address] [place] [address] Kanchan Ku APRN [address] [facility] [address] [place] [address] documented as of this encounter Visit Diagnoses Not on filedocumented in this encounter Care Teams Risk Management Intern Relationship Specialty Start Date End Date Aminta Krishnamurthy MD PCP - General Family Medicine 03/05/18 08/29/20 Rocio Carreno APRN [address] [place] [address] PCP - General 08/30/20 Amy Meyer APRN [facility] [address] [address] PCP - Sarina Commercial Attributed 02/24/21 12/24/22 documented as of this encounter
--- OUTSIDE RECORDS SUMMARY | 2024-05-26 17:47 | XMS_ITS | Clinical Summary ---
Author Organization [facility] Address [address] [place] [address] Care Team Providers Care Principal Quality Engineer Name Role Phone Rocio Carreno APRN Primary Care Provider + [phone] Allergies No known active allergies Medications Medication [...] Type Department Care Team Description 05/06/[address] [phone] Kanchan Ku APRN Chronic migraine without aura, intractable, without status migrainosus 03/18/2024 Scanned Document [address] [phone] Neurology, Scan 03/18/2024 Scanned Document [address] [phone] Neurology, Scan 03/04/[address] [place] [address] Kanchan Ku APRN from Last 3 [...] Date Recorded PHQ-2 Total Score 1 12/29/2023 [facility] of Occupat ional Health - Occupational Stress [...] 08/31/2024 2:00 PM EDT Office Visit [facility] [address] [address] Kanchan Ku APRN 65 [facility] [address] [place] [phone] Health Maintenance Due Date Last Done Comments [...] Name Priority Date/Time Associated Diagnosis Comments THINPREP PAP(DIRECTOR MOTION PICTURE) HPV SCR RFX HPV 16,18/45 Routine 04/11/2020 12:44 AM EST from Last 3 Months or Most Recently Relevant to Health Maintenance Results * ThinPrep Pap(It Programmer) HPV Scr Rfx HPV 16,18/45 (04/11/2020 12:44 [...] ??07/25/2017 HPV RESULTS: HPV mRNA E6/E7 ?? [id number] ?? Approved: 04/12/20 Negative ? REF RANGE: Negative CPT Codes: 90264 ICD Codes: Z01.419 Other 04/11/2020 12:4 4 AM EST 04/12/2020 1:18 AM EST Elizabeth Romo MD LAB AMB PATH/CYTO [facility] [address] [place] [place] from Last 3 Months or Most Recently Relevant to Health Maintenance Care Teams Principal Quality Engineer Relationship Specialty Start Date End Date Rocio Carreno APRN [address] [facility] [place] [address] PCP - General 08/30/20
== END 2024-05-26 14:51 | disposition home or self-care (01) ==
LOC: HO.LAB 14:50
PROVIDERS: Visit Provider Nurse Practitioner
DX: K59.04 Chronic idiopathic constipation (principal); Z80.0 Family history of malignant neoplasm of digestive organs
CPT/HCPCS: 36415; 80053; 84443; 85025